=== PATIENT | female | born 1990 | race Caucasian/White ===

== ENCOUNTER → 2017-04-12 | Outpatient (REF) | payer OTHER ==
[~2017-04-12] MED LIST: PRENTAB9 PO
[2017-04-12 16:39] LABS: ALBUMIN 3.4 GM/DL (3.2-5.2); ALKALINE PHOSPHATASE 58 U/L (45-117); ALT/SGPT 20 U/L (12-78); ANION GAP 7 MEQ/L (8-16); AST/SGOT 10 U/L (15-37); BILIRUBIN,TOTAL 0.5 MG/DL (0.2-1.0); BLOOD UREA NITROGEN 12 MG/DL (7-18); CALCIUM LEVEL 8.4 MG/DL (8.5-10.1); CARBON DIOXIDE LEVEL 25 MEQ/L (21-32); CHLORIDE LEVEL 109 MEQ/L (98-107); CHOLESTEROL LEVEL 190 MG/DL (<200); CREATININE FOR GFR 0.56 MG/DL (0.55-1.02); GLOMERULAR FILTRATION RATE > 60.0 (>60); GLUCOSE, FASTING 84 MG/DL (70-105); POTASSIUM SERUM 4.1 MEQ/L (3.5-5.1); SODIUM LEVEL 141 MEQ/L (136-145); TOTAL PROTEIN 6.8 GM/DL (6.4-8.2); TRIGLYCERIDES LEVEL 119 MG/DL (<150)
[2017-04-12 17:03] LABS: MEAN CORPUSCULAR HEMOGLOBIN 29.3 pg (27.0-33.0); MEAN CORPUSCULAR HGB CONC 34.2 g/dl (32.0-36.5); MEAN CORPUSCULAR VOLUME 85.7 fl (80.0-96.0); RED CELL DISTRIBUTION WIDTH 13.4 % (11.5-14.5); WHITE BLOOD COUNT 6.1 K/mm3 (4.0-10.0)
== END ==
LOC: M SFHCLACO 08:52
PROVIDERS: ATTEND Physician Assistant
DX: F17.200 Nicotine dependence, unspecified, uncomplicated (principal); N92.6 Irregular menstruation, unspecified; Z68.31 Body mass index [BMI] 31.0-31.9, adult

== ENCOUNTER → 2017-04-20 | Outpatient (REF) | payer OTHER | LOC: M SFHCLACO 13:02 | PROVIDERS: ATTEND Physician Assistant | DX: Z01.419 Encounter for gynecological examination (general) (routine) without abnormal findings (principal); Z11.51 Encounter for screening for human papillomavirus (HPV); R87.610 Atypical squamous cells of undetermined significance on cytologic smear of cervix (ASC-US) | CPT/HCPCS: 87070; 87077; G0123 ==

== ENCOUNTER → 2018-05-10 | Outpatient (REF) | payer OTHER | LOC: M SFHCLACO 15:24 | DX: Z01.419 Encounter for gynecological examination (general) (routine) without abnormal findings (principal) | CPT/HCPCS: 87070 ==

== ENCOUNTER → 2019-05-13 | Outpatient (REF) | payer OTHER | LOC: M SFHCLACO 16:01 | PROVIDERS: ATTEND Physician Assistant | DX: Z01.419 Encounter for gynecological examination (general) (routine) without abnormal findings (principal) ==

== ENCOUNTER → 2021-08-15 | Outpatient (REF) | payer OTHER ==
[2021-08-15 17:05] LABS: HCG, SERUM QUALITATIVE NEGATIVE (NEGATIVE)
[2021-08-15 17:14] LABS: LUTEINIZING HORMONE 12.2 mIU/mL
[2021-08-15 17:15] LABS: FOLLICLE STIMULATING HORMONE 4.9 mIU/mL
== END ==
LOC: M SFHCADAM 12:02
PROVIDERS: ATTEND Physician Assistant
DX: N91.2 Amenorrhea, unspecified (principal)